=== PATIENT | male | born 1955 | race Two or more races ===

== ENCOUNTER 2025-02-24 15:20 | Emergency (ER) | payer MEDICAID, OTHER | END 2025-02-24 17:02 | disposition left against medical advice (07) | LOC: ER 15:20 | DX: T14.90XA Injury, unspecified, initial encounter (principal); Z53.21 Procedure and treatment not carried out due to patient leaving prior to being seen by health care provider; W18.39XA Other fall on same level, initial encounter; Y93.89 Activity, other specified; Y92.89 Other specified places as the place of occurrence of the external cause; Y99.8 Other external cause status ==